=== PATIENT | male | born 1990 | race Caucasian/White ===

== ENCOUNTER 2021-10-29 02:56 | Emergency (ER) | payer OTHER ==
[2021-10-29] MEDS ORDERED: AUGMENTIN 875-1 EACH PO (06:23)
== END 2021-10-29 06:54 | disposition home or self-care (01) ==
LOC: FER 02:56
DX: J06.9 Acute upper respiratory infection, unspecified (principal); Z20.822 Contact with and (suspected) exposure to COVID-19
CPT/HCPCS: 71045; 94640; 94664; J1885; U0002

== ENCOUNTER 2022-04-29 14:26 | Emergency (ER) | payer OTHER ==
[~2022-04-29 14:26] MED LIST: AUGMENTIN 875-1 EACH PO
[2022-04-29 15:41] LABS: BASOPHIL 0.5 % (0-2); EOSINOPHIL 0.6 % (0-5); HGB 13.6 g/dl (13.2-18.0); LYMPHOCYTE 22.6 % (15-48); MCH 27.4 pg (25.0-31.0); MCHC 31.6 g/dL (32.0-36.0); MCV 86.7 fL (78.0-100.0); MONOCYTE 7.4 % (0-12); MPV 10.5 fL (6.0-9.5); NEUTROPHIL 68.6 % (41-80); NRBC 0; PLT 292 K/uL (150-400); RBC 4.96 M/uL (4.70-6.00); RDW 13.6 % (11.5-14.0); WBC 9.9 K/uL (4.0-10.5)
[2022-04-29 16:01] LABS: ALBUMIN 3.5 g/dL (3.4-5.0); BILIRUBIN - TOTAL 0.5 mg/dL (0.2-1.0); CREATININE 0.93 mg/dL (0.67-1.17); GLOBULIN (CALCULATION) 3.9 g/dL; POTASSIUM 4.1 mmol/L (3.5-5.1); TOTAL PROTEIN 7.4 g/dL (6.4-8.2)
[2022-04-29 16:10] LABS: CORONAVIRUS 2019 SARS-COV-2 NEGATIVE (NEGATIVE); INFLUENZA A NAA NEGATIVE (NEGATIVE)
[2022-04-29] MEDS ORDERED: AMOX TR-K CLV1 EAC4 PO (19:34)
[2022-04-29] MEDS ORDERED: MEDROL 4MG DOSEP4 MG PO (19:34)
[2022-04-29] MEDS ORDERED: OMEPRAZOLE 20MG20 MG PO (19:36)
== END 2022-04-29 20:00 | disposition home or self-care (01) ==
LOC: FER 14:26
PROVIDERS: Emergency Medicine
DX: J18.9 Pneumonia, unspecified organism (principal); Z88.0 Allergy status to penicillin; Z20.822 Contact with and (suspected) exposure to COVID-19; Z28.310 Unvaccinated for COVID-19
CPT/HCPCS: 36415; 71045; 80053; 84484; 85025; 93005; J1885; J2270; J7030; U0002